=== PATIENT | female | born 1940 | race Caucasian/White ===

== ENCOUNTER 2017-03-03 04:51 | Inpatient (IN) | payer MEDICARE ==
[2017-03-03] VITALS (15 sets, daily range): BP systolic 129–167; BP diastolic 60–86; PULSE 76–108; RESP 18–36; TEMP 96.8–99.3; O2SAT 94–100
[~2017-03-03] VITALS: Ht 154.9 cm; Wt 95.0 kg
[2017-03-03] MEDS ORDERED: SODIUM CHLORIDE 0.9% FLUSH 10 ML FLUSH IVF PRN (05:00)
[2017-03-03] MEDS ORDERED: FUROSEMIDE 40 MG/4 ML VIAL IV PUSH ONE (05:00)
--- NOTE | 2017-03-03 05:06 | PD ---
HPI Chief Complaint: Respiratory Symptoms Time Seen by Provider: 04:54 Travel History International Travel<30 days: No Contact w/Intl Traveler<30days: No Traveled to known affect area: No History of Present Illness HPI 76-year-old female presents to the emergency department by EMS transport for complaint of sudden worsening shortness of breath. Patient has history of severe COPD CHF and end-stage renal disease. Patient is on supplemental oxygen at all 3 L/m nasal cannula. Patient states since yesterday she has had progressively worsening shortness of breath. Patient states yesterday while trying to move her oxygen tank she felt pain in her mid back and is concerned she has sustained an injury or fracture. Patient's had no fall. Patient states that she is in the process of signing paperwork to place herself on hospice for end-stage COPD CHF and kidney failure. Patient is not a dialysis patient. Patient states she has chronic lower extremity edema. Patient does not report any fever or chills. Patient does not report any chest pain at this time. Patient was transported by EMS and identified at her residence to have O2 saturation of 88% on supplemental nasal cannula oxygen was subsequently placed on 15 L nonrebreather mask as patient refused CPAP en route to the hospital. Patient did receive albuterol nebulized treatments in route. PFSH Past Medical History Narrative Medical COPD CHF CAD/angina dvt chronic kidney disease; tobacco use; nursing notes reviewed Social History Tobacco Use: Yes Allergies-Medications (Allergen,Severity, Reaction): Coded Allergies: Iodinated Contrast- Oral and IV Dye (Verified Allergy, Severe, 03/03/17) Mqlwody-Oll-Gxr Reductase Inhibitor (Verified Allergy, Severe, 03/03/17) Reported Meds & Prescriptions Reported Meds & Active Scripts Active Reported Bisacodyl EC (Bisacodyl) 5 Mg Tabec 5 Mg PO DAILY PRN Jeannette-D 24 Hour Allergy (Fexofenadine-Pseudoephedrine ER 24 HR) 180-240 Flavio 1 Tab PO DAILY Lisinopril 20 Mg Tab 20 Mg PO DAILY Furosemide 40 Mg Tab 40 Mg PO DAILY Isosorbide Dinitrate 10 Mg Tab 30 Mg PO ONCE Nitrostat SL (Nitroglycerin) 0.4 Mg Subl 0.4 Mg SL DIRECTED PRN 1 tablet under the tongue as needed for chest pain. Repeat every 5 minutes for a total of 3 DOSES or call 911 if NO relief. Duoneb (Ipratropium-Albuterol Neb) 0.5-2.5 Mg/3 Ml Neb 1 Nebule INH Q4HR NEB Tramadol (Tramadol HCl) 50 Mg Tab 50 Mg PO Q4H PRN Warfarin 3 Mg Tab 3 Mg PO DAILY Albuterol Neb (Albuterol Sulfate) 2.5 Mg/3 Ml Neb 2.5 Mg NEB Q4HR NEB PRN Ventolin Hfa 18 GM Inh (Albuterol Sulfate) 90 Mcg/Act Aer 2 Puff INH Q4-6H PRN Prednisone 10 Mg Tab 10 Mg PO BID Narrative Medication 3 L/m nasal cannula oxygen Review of Systems Except as stated in HPI: all other systems reviewed are Neg Physical Exam Narrative GENERAL: Well-developed obese elderly female with nonrebreather mask in place with moderate respiratory distress. SKIN: Warm and dry. HEAD: Normocephalic. EYES: No scleral icterus. No injection or drainage. NECK: Supple, trachea midline. No JVD or lymphadenopathy. CARDIOVASCULAR: Increased Regular rate and rhythm without murmurs, gallops, or rubs. RESPIRATORY: Breath sounds equal bilaterally. Diminished bilaterally with basilar crackles. No accessory muscle use. GASTROINTESTINAL: Abdomen soft, non-tender, nondistended. MUSCULOSKELETAL: No cyanosis, bilateral lower leg and pedal edema. BACK: Nontender without obvious deformity. No CVA tenderness. Data Data Last Documented VS Vital Signs Date Time Temp Pulse Resp B/P (MAP) Pulse Ox O2 Delivery O2 Flow Rate FiO2 03/03/17 05:32 100 30 153/77 (102) 97 Nasal Cannula 30.00 30 03/03/17 04:55 98.2 Orders Orders Complete Blood Count With Diff (03/03/17 04:59) Comprehensive Metabolic Panel (03/03/17 04:59) B-Type Natriuretic Peptide (03/03/17 04:59) Act Partial Throm Time (Ptt) (03/03/17 04:59) Prothrombin Time / Inr (Pt) (03/03/17 04:59) Magnesium (Mg) (03/03/17 04:59) Ckmb (Isoenzyme) Profile (03/03/17 04:59) Troponin I (03/03/17 04:59) Urinalysis - C+S If Indicated (03/03/17 04:59) Blood Culture (03/03/17 04:59) Iv Access Insert/Monitor (03/03/17 04:59) Electrocardiogram (03/03/17 04:59) Ecg Monitoring (03/03/17 04:59) Oximetry (03/03/17 04:59) Oxygen Administration (03/03/17 04:59) Chest, Single Ap (03/03/17 04:59) Sodium Chloride 0.9% Flush (Ns Flush) (03/03/17 05:00) Albuterol-Ipratropium Neb (Duoneb Neb) (03/03/17 05:00) Lactic Acid (03/03/17 04:59) Furosemide Inj (Lasix Inj) (03/03/17 05:00) Resp High Flow Nasal Cannula (03/03/17 ) Arterial Blood Gas (Abg) (03/03/17 ) Urinary Catheter Insert/Apply (03/03/17 05:07) CKMB (03/03/17 05:15) CKMB% (03/03/17 05:15) Tramadol (Ultram) (03/03/17 06:15) D-Dimer (03/03/17 06:25) Admit Order (Ed Use Only) (03/03/17 ) Jde Developer / Telemetry CASANDRA.Q8H (03/03/17 06:49) Diet Heart Healthy (03/03/17 Breakfast) Activity Oob With Assistance (03/03/17 06:49) Notify Dr: Other (03/03/17 06:49) Labs Laboratory Tests Test 03/03/17 05:15 03/03/17 05:55 03/03/17 06:00 White Blood Count 9.2 TH/MM3 Red Blood Count 4.22 MIL/MM3 Hemoglobin 12.3 GM/DL Hematocrit 37.4 % Mean Corpuscular Volume 88.5 FL Mean Corpuscular Hemoglobin 29.2 PG Mean Corpuscular Hemoglobin Concent 33.0 % Red Cell Distribution Width 18.2 % Platelet Count 367 TH/MM3 Mean Platelet Volume 8.1 FL Neutrophils (%) (Auto) 77.6 % Lymphocytes (%) (Auto) 14.8 % Monocytes (%) (Auto) 6.9 % Eosinophils (%) (Auto) 0.4 % Basophils (%) (Auto) 0.3 % Neutrophils # (Auto) 7.2 TH/MM3 Lymphocytes # (Auto) 1.4 TH/MM3 Monocytes # (Auto) 0.6 TH/MM3 Eosinophils # (Auto) 0.0 TH/MM3 Basophils # (Auto) 0.0 TH/MM3 CBC Comment DIFF FINAL Differential Comment Prothrombin Time 9.8 SEC Prothromb Time International Ratio 1.0 RATIO Activated Partial Thromboplast Time 26.4 SEC D-Dimer Quantitative (PE/DVT) 1.91 MG/L FEU Urine Color YELLOW Urine Turbidity HAZY Urine pH 8.0 Urine Specific [place] 1.009 Urine Protein NEG mg/dL Urine Glucose (UA) NEG mg/dL Urine Ketones NEG mg/dL Urine Occult Blood NEG Urine Nitrite NEG Urine Bilirubin NEG Urine Urobilinogen 2.0 MG/DL Urine Leukocyte Esterase NEG Urine RBC 5 /hpf Urine WBC 1 /hpf Urine Amorphous Sediment OCC Urine Bacteria RARE /hpf Urine Mucus FEW /lpf Microscopic Urinalysis Comment CULT NOT INDICATED Blood Urea Nitrogen 9 MG/DL Creatinine 0.84 MG/DL Random Glucose 124 MG/DL Total Protein 6.9 GM/DL Albumin 3.3 GM/DL Calcium Level 8.6 MG/DL Magnesium Level 1.8 MG/DL Alkaline Phosphatase 88 U/L Aspartate Amino Transf (AST/SGOT) 22 U/L Alanine Aminotransferase (ALT/SGPT) 25 U/L Total Bilirubin 0.7 MG/DL Sodium Level 140 MEQ/L Potassium Level 4.2 MEQ/L Chloride Level 103 MEQ/L Carbon Dioxide Level 31.3 MEQ/L Anion Gap 6 MEQ/L Estimat Glomerular Filtration Rate 66 ML/MIN Total Creatine Kinase 105 U/L Creatine Kinase MB 3.3 NG/ML Troponin I 0.03 NG/ML B-Type Natriuretic Peptide 216 PG/ML Lactic Acid Level 1.0 mmol/L Blood Gas Puncture Site LT RADIAL Blood Gas Patient Temperature 98.6 Blood Gas HCO3 32 mmol/L Blood Gas Base Excess 6.9 mmol/L Blood Gas Oxygen Saturation 92 % Arterial Blood pH 7.41 Arterial Blood Partial Pressure CO2 51 mmHg Arterial Blood Partial Pressure O2 66 mmHG Arterial Blood Oxygen Content 15.7 Vol % Arterial Blood Carboxyhemoglobin 1.4 % Arterial Blood Methemoglobin 0.6 % Blood Gas Hemoglobin 12.2 G/DL Oxygen Delivery Device HIGH FLOW Blood Gas Liter Flow 30 L/M Blood Gas Inspired Oxygen 31 % MDM Medical Decision Making Medical Screen Exam Complete: Yes Emergency Medical Condition: Yes Medical Record Reviewed: Yes Interpretation(s) EKG sinus tachycardia rate [address] elevation injury pattern or ectopy noted Last Impressions Chest X-Ray 03/03/17 0459 Signed Impressions: Service Date/Time: Friday, March 03, 2017 05:10 - CONCLUSION: Large cardiac silhouette and possible retrocardiac left lung base atelectasis versus consolidation. Dave Juarez MD CBC & BMP Diagram 03/03/17 05:15 Total Protein 6.9, Albumin 3.3 L, Calcium Level 8.6, Magnesium Level 1.8, Alkaline Phosphatase 88, Aspartate Amino Transf (AST/SGOT) 22, Alanine Aminotransferase (ALT/SGPT) 25, Total Bilirubin 0.7 Vital Signs Date Time Temp Pulse Resp B/P (MAP) Pulse Ox O2 Delivery O2 Flow Rate FiO2 03/03/17 05:32 100 30 153/77 (102) 97 Nasal Cannula 30.00 30 03/03/17 05:05 96 High Flow Nasal Cannula 30.00 30 03/03/17 05:03 36 100 Non-Rebreather 15.00 03/03/17 05:02 100 Non-Rebreather 15.00 03/03/17 05:00 100 Non-Rebreather 03/03/17 04:55 98.2 108 36 167/85 (112) 100 Non-Rebreather 15.00 Differential Diagnosis Exacerbation COPD, CHF, PE, ACS, IA, pneumonia Narrative Course 76-year-old female with significant COPD CHF angina and chronic kidney disease history and presents with progressively worsening shortness of breath on supplemental oxygen at home and improved O2 saturations on nonrebreather mask refusing BiPAP or CPAP. EKG performed shows sinus tachycardia without acute injury pattern. Patient on security sme with continuous pulse oximetry. Discussed with patient BiPAP or high flow nasal cannula options as patient refuses intubation has a DO NOT RESUSCITATE that identifies she does not want to be intubated. Discussed with patient in detail inability to be sustained on nonrebreather mask without differential deterioration and and she is refusing BiPAP and intubation. Patient is considering allowing BiPAP utilization and an intradermal use high flow nasal cannula. At 6:27 AM ABG shows mild hypercarbia on 31% FiO2 daily as per minute high flow NC pH 7.41 PCO2 51 PO2 66 O2 saturation 92% bicarbonate 32 base excess 6.9 Patient clinically improved family at bedside CBC is automated differential values normal range complete metabolic panel values grossly within normal limits troponin I 0.03, not elevated BNP is mildly elevated at 216 D-dimer is pending and INR subtherapeutic; discussed with [facility] for admission and aware will add imaging study if elevated d-dimer Discussed with [facility] MD --OBS Physician Communication Physician Communication discussed with [facility] service MD Diagnosis Primary Impression: Dyspnea Qualified Codes: R06.03 - Acute respiratory distress Additional Impressions: COPD exacerbation CHF with unknown LVEF Chronic low back pain Admitting Information Admitting Physician Requests: Observation Awilda Peralta MD Mar 03, 2017 05:06
[2017-03-03] MEDS: RESP: ALBUTEROL 2.5 MG/IPRATROPIUM 0.5 MG NEB (SCH) INH ×2 (05:20→05:21)
--- NOTE | 2017-03-03 05:28 | RADRPT ---
EXAM DATE/TIME: 03/03/2017 05:10 [facility] COMPARISON: No previous studies available for comparison. INDICATIONS : Shortness of breath MEDICAL HISTORY : Unknown SURGICAL HISTORY : Unknown ENCOUNTER: Initial ACUITY: 1 day PAIN SCORE: 8/10 LOCATION: Bilateral chest FINDINGS: Single AP view of the chest. Mild cardiac silhouette enlargement. Left lung base opacity indicating p ossible atelectasis or consolidation. Eventration of right hemidiaphragm. No evidence of pleural effu funmilayo or pneumothorax. CONCLUSION: Large cardiac silhouette and possible retrocardiac left lung base atelectasis versus consolidation. Dave Juarez MD on March 03, 2017 at 5:25 Board Certified Radiologist. This report was verified electronically.
[2017-03-03 05:30] LABS: AUTOMATED NEUTROPHIL # 7.2 TH/MM3 (1.8-7.7); BASOPHIL % 0.3 % (0.0-2.0); EOSINOPHIL % 0.4 % (0.0-4.0); HEMATOCRIT 37.4 % (35.0-46.0); HEMOGLOBIN 12.3 GM/DL (11.6-15.3); LYMPH % 14.8 % (9.0-44.0); LYMPHOCYTE # 1.4 TH/MM3 (1.0-4.8); MEAN CELL VOLUME 88.5 FL (80.0-100.0); MEAN CORPUSCULAR HEMOGLOBIN 29.2 PG (27.0-34.0); MEAN PLATELET VOLUME 8.1 FL (7.0-11.0); MONO % 6.9 % (0.0-8.0); MONOCYTE # 0.6 TH/MM3 (0-0.9); NEUT % 77.6 % (16.0-70.0); PLATELET COUNT 367 TH/MM3 (150-450); RED BLOOD COUNT 4.22 MIL/MM3 (4.00-5.30); RED CELL DISTRIBUTION WIDTH 18.2 % (11.6-17.2); WHITE BLOOD COUNT 9.2 TH/MM3 (4.0-11.0)
[2017-03-03 05:35] LABS: AMORPHOUS SEDIMENT, URINE OCC; BACTERIA, URINE RARE /hpf; BILIRUBIN, URINE NEG (NEG); BLOOD, URINE NEG (NEG); GLUCOSE,URINE NEG (NEG); KETONE, URINE NEG (NEG); MUCUS URINE FEW /lpf (OCC); NITRITE,URINE NEG (NEG); URINE COLOR YELLOW (YELLW/STRAW); URINE LEUKOCYTE ESTERASE NEG (NEG)
[2017-03-03 05:42] LABS: PROTHROMBIN TIME - PATIENT 9.8 SEC (9.8-11.6)
[2017-03-03 05:51] LABS: ALBUMIN 3.3 GM/DL (3.4-5.0); ALT (GPT) 25 U/L (10-53); AST (GOT) 22 U/L (15-37); BICARBONATE 31.3 MEQ/L (21.0-32.0); BLOOD UREA NITROGEN 9 MG/DL (7-18); CALCIUM 8.6 MG/DL (8.5-10.1); CHLORIDE 103 MEQ/L (98-107); CREATININE 0.84 MG/DL (0.50-1.00); GLOMERULAR FILTRATION RATE 66 ML/MIN (>89); GLUCOSE,RANDOM 124 MG/DL (74-106); MAGNESIUM 1.8 MG/DL (1.5-2.5); SODIUM (NA) 140 MEQ/L (136-145)
[2017-03-03 05:55] LABS: ALKALINE PHOSPHATASE 88 U/L (45-117); TOTAL BILIRUBIN ADULT 0.7 MG/DL (0.2-1.0); TOTAL PROTEIN 6.9 GM/DL (6.4-8.2); TROPONIN I 0.03 NG/ML (0.02-0.05)
[2017-03-03] MEDS ORDERED: traMADol HCL 50 MG TAB PO ONE (06:15)
[2017-03-03] MEDS ORDERED: WARF-58 PO (06:31)
[2017-03-03] MEDS ORDERED: LISI-515 PO (06:31)
[2017-03-03] MEDS ORDERED: FLEE5TAB PO (06:31)
[2017-03-03] MEDS ORDERED: ISOS10TA PO (06:31)
[2017-03-03] MEDS ORDERED: IPRASOL INH (06:31)
[2017-03-03] MEDS ORDERED: PRED10 PO (06:31)
[2017-03-03] MEDS ORDERED: TRAM50TA PO (06:31)
[2017-03-03] MEDS ORDERED: FURO40TA PO (06:31)
[2017-03-03] MEDS ORDERED: ALBU0.08 NEB (06:31)
[2017-03-03] MEDS ORDERED: VENTAER INH (06:31)
[2017-03-03] MEDS ORDERED: FEXO1TAB97 PO (06:31)
[2017-03-03] MEDS ORDERED: NITR0.4S SL (06:31)
[2017-03-03] MEDS ORDERED: RESP: ALBUTEROL 2.5 MG/IPRATROPIUM 0.5 MG NEB (PRN) NEB (07:00)
[2017-03-03] MEDS ORDERED: ACETAMINOPHEN 325 MG TAB PO PRN (07:00)
[2017-03-03] MEDS ORDERED: SODIUM CHLORIDE 0.9% FLUSH 10 ML FLUSH IV FLUSH PRN (07:00)
[2017-03-03] MEDS ORDERED: ONDANSETRON HCL 4 MG/2 ML VIAL IVP PRN (07:00)
[2017-03-03] MEDS ORDERED: BISACODYL 10 MG SUPP RECTAL PRN (07:00)
[2017-03-03] MEDS ORDERED: SENNOSIDES 8.6 MG TAB PO PRN (07:00)
[2017-03-03] MEDS ORDERED: LACTULOSE SYRUP 20 GM/30 ML CUP PO PRN (07:00)
[2017-03-03] MEDS ORDERED: ACETAMINOPHEN/HYDROcodone 325 MG/5 MG TAB PO PRN (07:00)
[2017-03-03] MEDS ORDERED: MAGNESIUM HYDROXIDE SUSP 30 ML CUP PO PRN (07:00)
[2017-03-03] MEDS: RESP: ALBUTEROL 2.5 MG/IPRATROPIUM 0.5 MG NEB (SCH) NEB ×5 (07:35→23:17)
[2017-03-03] MEDS ORDERED: SODIUM CHLORIDE 0.9% FLUSH 10 ML FLUSH IV FLUSH SCH (09:00)
[2017-03-03] MEDS: DOCUSATE SODIUM 50 MG/SENNA 8.6 MG TAB PO SCH ×2 (09:34→21:21)
[2017-03-03] MEDS: FUROSEMIDE 40 MG/4 ML VIAL IV PUSH SCH ×2 (09:34→17:05)
[2017-03-03] MEDS: ACETAMINOPHEN/HYDROcodone 325 MG/10 MG TAB PO PRN ×3 (09:35→21:21)
--- NOTE | 2017-03-03 10:46 | RADRPT ---
EXAM DATE/TIME: 03/03/2017 09:54 [facility] COMPARISON: CHEST SINGLE AP, March 03, 2017, 5:10. INDICATIONS : Dyspnea. DOSE: 8.6 mCi Tc99m MAA IV 0.5 mCi Tc99m DTPA aerosol MEDICAL HISTORY : Chronic obstructive pulmonary disease. Congestive heart failure. Hypertension. SURGICAL HISTORY : Tubal ligation. Tonsillectomy. ENCOUNTER: Initial ACUITY: 1 day PAIN SCALE: 0/10 LOCATION: chest TECHNIQUE: Following five minutes of tidal breathing of DTPA aerosol, planar images of the lungs were performed in eight projections. The patient was then injected with MAA, and eight-view perfusion scan was perf ormed. FINDINGS: The ventilation and perfusion scans demonstrate large matched defects involving the left perihilar re gion. This scan is considered intermediate probability for pulmonary embolism. CT pulmonary angiogram would be more sensitive to rule out pulmonary emboli in this patient if clinically indicated. CONCLUSION: Intermediate probability for pulmonary embolism. CT pulmonary angiogram would be more sensitive to ru le out pulmonary emboli in this patient if clinically indicated. Andrew Aviles MD on March 03, 2017 at 10:40 Board Certified Radiologist. This report was verified electronically.
[2017-03-03] MEDS ORDERED: ISOSORBIDE DINITRATE 10 MG TAB PO ONE (11:15)
[2017-03-03] MEDS ORDERED: BISACODYL EC 5 MG TABEC PO PRN (11:15)
--- NOTE | 2017-03-03 11:47 | HHI.HP ---
HPI Service [facility] Primary Care Physician Unknown Admission Diagnosis dyspnea; exac copd, h/o chf Diagnoses: Chief Complaint: RESPIRATORY SYMPTOMS Travel History International Travel<30 Days: No Contact w/Intl Traveler <30 Da: No Traveled to Known Affected Are: No History of Present Illness Patient is a 76-year-old female, Who is visiting us from [place], who presented to the emergency department by EMS for complaint of sudden worsening shortness of breath. Patient has a history of severe COPD and congestive heart failure and end-stage COPD. Patient is on chronic supplemental oxygen at home ON 3 L by nasal cannula continuously. Patient states since yesterday she has had progressively worsening shortness of breath. Patient states yesterday while trying to move her oxygen Tank she felt pain in her mid back and is concerned she sustained injury or fracture. Patient denies any fall, patient states that she is in the process of signing paperwork to place herself in hospice for end-stage COPD and CHF and possible renal issues. Patient is not on dialysis. Patient states she has chronic lower extremity edema. Patient denies any report of fever or chills that does not report any chest pain at this time was transported here by EMS noted to have oxygen saturation of only 88 % on oxygen. And then had been on 15 L nonrebreather mask had refused CPAP en route to the hospital and was given nebulized treatments prior to coming to the hospital Patient HAS made herself a complete DO NOT RESUSCITATE does not wish to be intubated or placed on any machines. Wants everything done except for that but no CPR or machines or aggressive treatment but still wants to be treated We'll ask hospice to see her here since she was contemplating hospice up in [place] We'll get x-rays of her back also Review of Systems Constitutional: COMPLAINS OF: Fatigue, Weight gain, DENIES: Diaphoretic episodes, Fever, Weight loss, Chills, Dizziness, Change in appetite, Night Sweats Endocrine: DENIES: Abnorml menstrual pattern, Heat/cold intolerance, Polydipsia , Polyuria Eyes: DENIES: Blurred vision, Diplopia, Eye inflammation, Eye pain, Vision loss , Photosensitivity Ears, nose, mouth, throat: DENIES: Tinnitus, Hearing loss, Vertigo, Nasal discharge, Oral lesions, Throat pain, Hoarseness Respiratory: COMPLAINS OF: Cough, Wheezing, Sputum production, Shortness of breath, DENIES: Apneas, Snoring, Hemoptysis Cardiovascular: DENIES: Chest pain, Palpitations, Syncope, Dyspnea on Exertion Gastrointestinal: DENIES: Abdominal pain, Black stools, Bloody stools Genitourinary: DENIES: Abnormal vaginal bleeding, Dysmenorrhea, Sexual dysfunction Musculoskeletal: COMPLAINS OF: Joint pain, Back pain, Neck pain, DENIES: Muscle aches, Stiffness, Joint Swelling Integumentary: DENIES: Abnormal pigmentation, Pruritus, Rash, Nail changes, Breast masses, Breast skin changes Hematologic/lymphatic: DENIES: Bruising, Lymphadenopathy Immunologic/allergic: DENIES: Eczema, Urticaria Neurologic: COMPLAINS OF: Abnormal gait, Localized weakness, Poor Balance, DENIES: Headache, Paresthesias, Seizures, Speech Problems, Tremor Psychiatric: COMPLAINS OF: Anxiety, Depression, DENIES: Confusion, Mood changes , Hallucinations, Suicidal Ideation, Homicidal Ideation Except as stated in HPI: all other systems reviewed are Neg Past Family Social History Past Medical History COPD CHF End-stage COPD Renal insufficiency Hyperlipidemia 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 History of coronary artery disease Hypertension Pneumonia Obesity Chronic lower extremity edema/lymphedema Past Surgical History Cataract surgery Tonsillectomy Stenting cardiac 3 Appendectomy Ligation section Multiple D&Cs Tumor removed from her throat was benign Reported Medications Reported Meds & Active Scripts Active Reported Bisacodyl EC (Bisacodyl) 5 Mg Tabec 5 Mg PO DAILY PRN Jeannette-D 24 Hour Allergy (Fexofenadine-Pseudoephedrine ER 24 HR) 180-240 Flavio 1 Tab PO DAILY Lisinopril 20 Mg Tab 20 Mg PO DAILY Furosemide 40 Mg Tab 40 Mg PO DAILY Isosorbide Dinitrate 10 Mg Tab 30 Mg PO ONCE Nitrostat SL (Nitroglycerin) 0.4 Mg Subl 0.4 Mg SL DIRECTED PRN 1 tablet under the tongue as needed for chest pain. Repeat every 5 minutes for a total of 3 DOSES or call 911 if NO relief. Duoneb (Ipratropium-Albuterol Neb) 0.5-2.5 Mg/3 Ml Neb 1 Nebule INH Q4HR NEB Tramadol (Tramadol HCl) 50 Mg Tab 50 Mg PO Q4H PRN Warfarin 3 Mg Tab 3 Mg PO DAILY Albuterol Neb (Albuterol Sulfate) 2.5 Mg/3 Ml Neb 2.5 Mg NEB Q4HR NEB PRN Ventolin Hfa 18 GM Inh (Albuterol Sulfate) 90 Mcg/Act Aer 2 Puff INH Q4-6H PRN Prednisone 10 Mg Tab 10 Mg PO BID Allergies: Coded Allergies: Iodinated Contrast- Oral and IV Dye (Verified Allergy, Severe, 03/03/17) Dkyzuuf-[id number] Reductase Inhibitor (Verified Allergy, Severe, 03/03/17) Active Ordered Medications Current Medications Sodium Chloride (NS Flush) 2 ml UNSCH PRN IVF FLUSH AFTER USING IV ACCESS; Start 03/03/17 at 05:00; Stop 03/03/17 at 07:06; Status DC Albuterol/ Ipratropium (Duoneb Neb) 1 ampule Q15M INH Last administered on at 05:21; Start 03/03/17 at 05:00; Stop 03/03/17 at 05:16; Status DC Furosemide (Lasix Inj) 40 mg ONCE ONCE IV PUSH Last administered on 03/03/17at 05:32; Start 03/03/17 at 05:00; Stop 03/03/17 at 05:02; Status DC Tramadol HCl (Ultram) 50 mg ONCE ONCE PO Last administered on 03/03/17at 06:21; Start 03/03/17 at 06:15; Stop 03/03/17 at 06:16; Status DC Methylprednisolone Sodium Succinate (SoluMEDROL INJ) 40 mg Q6HR IV PUSH ; Start 03/03/17 at 12:00 Albuterol/ Ipratropium (Duoneb Neb) 1 ampule Q4HR NEB NEB Last administered on 03/03/17at 07:35; Start 03/03/17 at 08:00 Albuterol/ Ipratropium (Duoneb Neb) 1 ampule Q2HR NEB PRN NEB SOB/WHEEZING; Start 03/03/17 at 07:00 Budesonide/ Formoterol Fumarate (Symbicort 160-4.5 Mcg Inh) 2 puff Q12HR INH ; Start 03/03/17 at 09:00 Furosemide (Lasix Inj) 40 mg BID@,18 IV PUSH Last administered on 03/03/17at 09 :34; Start 03/03/17 at 09:00 Sodium Chloride (NS Flush) 2 ml UNSCH PRN IV FLUSH FLUSH AFTER USING IV ACCESS ; Start 03/03/17 at 07:00 Sodium Chloride (NS Flush) 2 ml BID IV FLUSH Last administered on 03/03/17at 09: 34; Start 03/03/17 at 09:00 Ondansetron HCl (Zofran Inj) 4 mg Q6H PRN IVP NAUSEA OR VOMITING; Start at 07:00 Acetaminophen (Tylenol) 650 mg Q6H PRN PO FEVER/PAIN SCALE 1 TO 2; Start at 07:00 Acetaminophen/ Hydrocodone Bitart ([place] 5-325 Mg) 1 tab Q4H PRN PO PAIN SCALE 3 TO 5; Start 03/03/17 at 07:00 Acetaminophen/ Hydrocodone Bitart ([place] 10-325 Mg) 1 tab Q4H PRN PO PAIN SCALE 6 TO 10 Last administered on 03/03/17at 09:35; Start 03/03/17 at 07:00 Senna/Docusate Sodium (Natividad-Colace) 1 tab BID PO Last administered on 03/03/17at 09:34; Start 03/03/17 at 09:00 Magnesium Hydroxide (Milk Of Magnesia Liq) 30 ml Q12H PRN PO Mild constipation ; Start 03/03/17 at 07:00 Sennosides (Senokot) 17.2 mg Q12H PRN PO Moderate constipation; Start 03/03/17 at 07:00 Bisacodyl (Dulcolax Supp) 10 mg DAILY PRN RECTAL SEVERE CONSITIPATION; Start at 07:00 Lactulose (Lactulose Liq) 30 ml DAILY PRN PO SEVERE CONSITIPATION; Start at 07:00 Warfarin Sodium (Coumadin) 3 mg DAILY@1600 PO ; Start 03/03/17 at 16:00 Patient Medication Teaching (Coumadin Booklet) 1 ONCE ONCE .XX ; Start 03/03/17 at 07:15; Stop 03/03/17 at 07:16; Status DC Family History Tobacco abuse Heart disease Hypertension Social History HX OF EXTENSIVE TOBACCO 2PPD FOR 30 YEARS DENIES TOBACCO NOW DENIES ILLICITS OR ALCOHOL Physical Exam Vital Signs Vital Signs Date Time Temp Pulse Resp B/P (MAP) Pulse Ox O2 Delivery O2 Flow Rate FiO2 03/03/17 09:33 94 Nasal Cannula 3.00 03/03/17 09:32 99.3 99 24 129/66 (87) 94 03/03/17 09:12 90 18 136/83 (100) 96 Nasal Cannula 3.00 03/03/17 07:37 97 Nasal Cannula 3.00 03/03/17 07:08 96 26 146/86 (106) 97 Nasal Cannula 3.00 03/03/17 05:32 100 30 153/77 (102) 97 Nasal Cannula 30.00 30 03/03/17 05:05 96 High Flow Nasal Cannula 30.00 30 03/03/17 05:03 36 100 Non-Rebreather 15.00 03/03/17 05:02 100 Non-Rebreather 15.00 03/03/17 05:00 100 Non-Rebreather 03/03/17 04:55 98.2 108 36 167/85 (112) 100 Non-Rebreather 15.00 Physical Exam GENERAL: This is a well-nourished, well-developed patient, in no apparent distress. SKIN: No rashes, ecchymoses or lesions. Cool and dry. HEAD: Atraumatic. Normocephalic. No temporal or scalp tenderness. EYES: Pupils equal round and reactive. Extraocular motions intact. No scleral icterus. No injection or drainage. ENT: Nose without bleeding, purulent drainage or septal hematoma. Throat without erythema, tonsillar hypertrophy or exudate. Uvula midline. Airway patent. NECK: Trachea midline. No JVD or lymphadenopathy. Supple, nontender, no meningeal signs. CARDIOVASCULAR: Regular rate and rhythm without murmurs, gallops, or rubs. S1, S2 NO S3 OR S4 RESPIRATORY: Clear to auscultation. Breath sounds equal bilaterally. No wheezes , rales, or rhonchi. GASTROINTESTINAL: Abdomen soft, non-tender, nondistended. No hepato-splenomegaly , or palpable masses. No guarding. MUSCULOSKELETAL: Extremities without clubbing, cyanosis. No joint tenderness, effusion, or edema noted. No calf tenderness. Negative Homans sign bilaterally. 2- 3 PLUS EDEMA BL LE NEUROLOGICAL: Awake and alert. Cranial nerves II through XII intact. Motor and sensory grossly within normal limits. 4 out of 5 muscle strength in all muscle groups. Normal speech. INSIGHT AND JUDGEMENT ARE GOOD MOOD AND BEHAVIOR SOMEWHAT APPROPRIATE Laboratory Laboratory Tests Test 03/03/17 05:15 03/03/17 05:55 03/03/17 06:00 White Blood Count 9.2 Red Blood Count 4.22 Hemoglobin 12.3 Hematocrit 37.4 Mean Corpuscular Volume 88.5 Mean Corpuscular Hemoglobin 29.2 Mean Corpuscular Hemoglobin Concent 33.0 Red Cell Distribution Width 18.2 Platelet Count 367 Mean Platelet Volume 8.1 Neutrophils (%) (Auto) 77.6 Lymphocytes (%) (Auto) 14.8 Monocytes (%) (Auto) 6.9 Eosinophils (%) (Auto) 0.4 Basophils (%) (Auto) 0.3 Neutrophils # (Auto) 7.2 Lymphocytes # (Auto) 1.4 Monocytes # (Auto) 0.6 Eosinophils # (Auto) 0.0 Basophils # (Auto) 0.0 CBC Comment DIFF FINAL Differential Comment Prothrombin Time 9.8 Prothromb Time International Ratio 1.0 Activated Partial Thromboplast Time 26.4 D-Dimer Quantitative (PE/DVT) 1.91 Urine Color YELLOW Urine Turbidity HAZY Urine pH 8.0 Urine Specific Sandy 1.009 Urine Protein NEG Urine Glucose (UA) NEG Urine Ketones NEG Urine Occult Blood NEG Urine Nitrite NEG Urine Bilirubin NEG Urine Urobilinogen 2.0 Urine Leukocyte Esterase NEG Urine RBC 5 Urine WBC 1 Urine Amorphous Sediment OCC Urine Bacteria RARE Urine Mucus FEW Microscopic Urinalysis Comment CULT NOT INDICATED Blood Urea Nitrogen 9 Creatinine 0.84 Random Glucose 124 Total Protein 6.9 Albumin 3.3 Calcium Level 8.6 Magnesium Level 1.8 Alkaline Phosphatase 88 Aspartate Amino Transf (AST/SGOT) 22 Alanine Aminotransferase (ALT/SGPT) 25 Total Bilirubin 0.7 Sodium Level 140 Potassium Level 4.2 Chloride Level 103 Carbon Dioxide Level 31.3 Anion Gap 6 Estimat Glomerular Filtration Rate 66 Total Creatine Kinase 105 Creatine Kinase MB 3.3 Troponin I 0.03 B-Type Natriuretic Peptide 216 Lactic Acid Level 1.0 Blood Gas Puncture Site LT RADIAL Blood Gas Patient Temperature 98.6 Blood Gas HCO3 32 Blood Gas Base Excess 6.9 Blood Gas Oxygen Saturation 92 Arterial Blood pH 7.41 Arterial Blood Partial Pressure CO2 51 Arterial Blood Partial Pressure O2 66 Arterial Blood Oxygen Content 15.7 Arterial Blood Carboxyhemoglobin 1.4 Arterial Blood Methemoglobin 0.6 Blood Gas Hemoglobin 12.2 Oxygen Delivery Device HIGH FLOW Blood Gas Liter Flow 30 Blood Gas Inspired Oxygen 31 Date/Time Source Procedure Growth Status 03/03/17 05:15 Blood Peripheral Aerobic Blood Culture Pending Received 03/03/17 05:15 Blood Peripheral Anaerobic Blood Culture Pending Received Result Diagram: 03/03/17 0515 03/03/17 0515 Imaging Last Impressions Chest X-Ray 03/03/17 0459 Signed Impressions: Service Date/Time: Friday, March 03, 2017 05:10 - CONCLUSION: Large cardiac silhouette and possible retrocardiac left lung base atelectasis versus consolidation. Dave Juarez MD Lung Scan-V Nuclear Medicine 03/03/17 0000 Signed Impressions: Service Date/Time: Friday, March 03, 2017 09:54 - CONCLUSION: Intermediate probability for pulmonary embolism. CT pulmonary angiogram would be more sensitive to rule out pulmonary emboli in this patient if clinically indicated. Andrew Aviles MD Caprini VTE Risk Assessment Caprini VTE Risk Assessment: Mod/High Risk (score >= 2) Caprini Risk Assessment Model Point Value = 1 Point Value = 2 Point Value = 3 Point Value = 5 Age 41-60 Minor surgery BMI > 25 kg/m2 Swollen legs Varicose veins or History of unexplained or recurrent spontaneous Oral contraceptives or hormone replacement Sepsis (< 1 month) Serious lung disease, including pneumonia (< 1 month) Abnormal pulmonary function Acute myocardial infarction Congestive heart failure (< 1 month) History of inflammatory bowel disease Medical patient at bed rest Age 61-74 Arthroscopic surgery Major open surgery (> 45 min) Laparoscopic surgery (> 45 min) Malignancy Confined to bed (> 72 hours) Immobilizing plaster cast Central venous access Age >= 75 History of VTE Family history of VTE Factor V Leiden Prothrombin [id number] Lupus anticoagulant Anticardiolipin antibodies Elevated serum homocysteine Heparin-induced thrombocytopenia Other congenital or acquired thrombophilia Stroke (< 1 month) Elective arthroplasty Hip, pelvis, or leg fracture Acute spinal cord injury (< 1 month) Prophylaxis Regimen Total Risk Factor Score Risk Level Prophylaxis Regimen 0-1 Low Early ambulation 2 Moderate Order ONE of the following: *Sequential Compression Device (SCD) *Heparin 5000 units SQ BID 3-4 Higher Order ONE of the following medications: *Heparin 5000 units SQ TID *Enoxaparin/Lovenox 40 mg SQ daily (WT < 150 kg, CrCl > 30 mL/min) *Enoxaparin/Lovenox 30 mg SQ daily (WT < 150 kg, CrCl > 10-29 mL/min) *Enoxaparin/Lovenox 30 mg SQ BID (WT < 150 kg, CrCl > 30 mL/min) AND/OR *Sequential Compression Device (SCD) 5 or more Highest Order ONE of the following medications: *Heparin 5000 units SQ TID (Preferred with Epidurals) *Enoxaparin/Lovenox 40 mg SQ daily (WT < 150 kg, CrCl > 30 mL/min) *Enoxaparin/Lovenox 30 mg SQ daily (WT < 150 kg, CrCl > 10-29 mL/min) *Enoxaparin/Lovenox 30 mg SQ BID (WT < 150 kg, CrCl > 30 mL/min) AND *Sequential Compression Device (SCD) Assessment and Plan Assessment and Plan Respiratory insufficiency/failure Endstage COPD per patient continue on dual nebs at Mucinex continue on Symbicort continue on incentive spirometry we'll had antibiotics with Zithromax and Rocephin for possible pneumonia component Continue on steroids We'll also consult hospice since patient has end-stage COPD and is to be in hospice [facility] Patient is a DO NOT RESUSCITATE refuses to be intubated did not tolerate BiPAP very well this morning Continue steroids Congestive heart failure continue on Lasix monitor BUN/creatinine Obesity weight loss recommended Status post fall with back pain will get multiple x-rays of her thoracic and lumbar spine Hypertension continue on her home medications Coronary artery disease continue on indoor and her home medications Continue on aspirin and warfarin Hyperlipidemia patient can states she cannot take his statin Iodine allergy Had VQ scan Continue current DVT and GI prophylaxis Code Status DO NOT RESUSCITATE Discussed Condition With Discussed with patient and RN and family Physician Certification 2 Midnight Certification Type: Admission for Inpatient Services Order for Inpatient Services The services are ordered in accordance with Medicare regulations or non- Medicare payer requirements, as applicable. In the case of services not specified as inpatient-only, they are appropriately provided as inpatient services in accordance with the 2-midnight benchmark. Estimated LOS (days): 3 days is the estimated time the patient will need to remain in the hospital, assuming treatment plan goals are met and no additional complications. Post-Hospital Plan: Not yet determined Emir Ng DO Mar 03, 2017 11:46
[2017-03-03] MEDS ORDERED: RESP: ALBUTEROL 2.5 MG/IPRATROPIUM 0.5 MG NEB (SCH) INH (12:00)
[2017-03-03] MEDS: guaiFENesin E.R. 600 MG TAB PO SCH ×2 (12:18→21:48)
[2017-03-03] MEDS: BUDESONIDE-FORMOTEROL 160/4.5 MCG INHALER INH SCH ×2 (12:18→21:49)
[2017-03-03] MEDS: methylPREDNISolone SOD SUCC 40 MG/1 ML VIAL IV PUSH SCH ×2 (12:19→17:05)
[2017-03-03] MEDS: cefTRIAXone INJ 1,000 MG in SODIUM CHLORIDE 0.9% INJ 100 ML IV SCH (12:19)
--- NOTE | 2017-03-03 12:21 | RADRPT ---
EXAM DATE/TIME: 03/03/2017 11:28 [facility] COMPARISON: No previous studies available for comparison. INDICATIONS : Lower back pain post fall. MEDICAL HISTORY : None. SURGICAL HISTORY : Abdominal aortic stent. ENCOUNTER: Initial ACUITY: 1 day PAIN SCORE: 7/10 LOCATION: lumbar spine. FINDINGS: No acute compression fracture, spondylolisthesis or spondylolysis of lumbar spine is noted. Aortic st ent graft is noted. CONCLUSION: No acute compression fracture, spondylolisthesis or spondylolysis of lumbar spine. Andrew Aviles MD on March 03, 2017 at 12:15 Board Certified Radiologist. This report was verified electronically.
--- NOTE | 2017-03-03 12:23 | RADRPT ---
EXAM DATE/TIME: 03/03/2017 11:29 [facility] COMPARISON: No previous studies available for comparison. INDICATIONS : Back pain post fall. MEDICAL HISTORY : None. SURGICAL HISTORY : Abdominal aortic stent. ENCOUNTER: Initial ACUITY: 1 day PAIN SCORE: 7/10 LOCATION: thoracic spine. FINDINGS: Degenerative changes and scoliosis of the thoracic spine are noted. There is no acute compression fra cture or subluxation. CONCLUSION: 1. Degenerative changes and scoliosis of the thoracic spine. 2. No acute fracture or subluxation. Andrew Aviles MD on March 03, 2017 at 12:20 Board Certified Radiologist. This report was verified electronically.
[2017-03-03] MEDS: AZITHROMYCIN INJ 500 MG in SODIUM CHLOR 0.9% 250 ML INJ 250 ML IV SCH (12:57)
--- NOTE | 2017-03-03 14:25 | EKG ---
Date Performed: 03/03/2017 Time Performed: 05:02:31 PTAGE: 76 years EKG: SINUS TACHYCARDIA ABNORMAL RHYTHM ECG NO PREVIOUS TRACING DOCTOR: Issa Bethea Interpretating Date/Time 03/03/2017 14:23:33
[2017-03-03] MEDS: WARFARIN SOD 3 MG TAB PO SCH (17:05)
[2017-03-03] MEDS ORDERED: predniSONE 10 MG TAB PO SCH (21:00)
[2017-03-03] MEDS: SODIUM CHLORIDE 0.9% FLUSH 10 ML FLUSH IV FLUSH SCH (21:21)
[2017-03-04] VITALS (11 sets, daily range): BP systolic 99–152; BP diastolic 49–80; PULSE 78–115; RESP 18–22; TEMP 97.8–98.2; O2SAT 93–95
[2017-03-04] MEDS: methylPREDNISolone SOD SUCC 40 MG/1 ML VIAL IV PUSH SCH ×5 (01:20→23:59)
[2017-03-04] MEDS: RESP: ALBUTEROL 2.5 MG/IPRATROPIUM 0.5 MG NEB (SCH) NEB ×5 (03:20→22:57)
[2017-03-04 06:54] LABS: BASOPHIL % 0.1 % (0.0-2.0); HEMATOCRIT 33.9 % (35.0-46.0); HEMOGLOBIN 11.4 GM/DL (11.6-15.3); LYMPH % 7.4 % (9.0-44.0); LYMPHOCYTE # 0.6 TH/MM3 (1.0-4.8); MEAN CELL VOLUME 87.5 FL (80.0-100.0); MEAN CORPUSCULAR HEMOGLOBIN 29.3 PG (27.0-34.0); MEAN CORPUSCULAR HGB CONC 33.5 % (32.0-36.0); MEAN PLATELET VOLUME 8.2 FL (7.0-11.0); MONO % 1.5 % (0.0-8.0); MONOCYTE # 0.1 TH/MM3 (0-0.9); PLATELET COUNT 352 TH/MM3 (150-450); RED BLOOD COUNT 3.87 MIL/MM3 (4.00-5.30); RED CELL DISTRIBUTION WIDTH 16.8 % (11.6-17.2); WHITE BLOOD COUNT 7.7 TH/MM3 (4.0-11.0)
[2017-03-04 07:46] LABS: ALBUMIN 3.1 GM/DL (3.4-5.0); ALKALINE PHOSPHATASE 83 U/L (45-117); ALT (GPT) 20 U/L (10-53); AST (GOT) 15 U/L (15-37); BICARBONATE 33.5 MEQ/L (21.0-32.0); BLOOD UREA NITROGEN 16 MG/DL (7-18); CALCIUM 8.8 MG/DL (8.5-10.1); CHLORIDE 93 MEQ/L (98-107); CREATININE 1.01 MG/DL (0.50-1.00); FREE T4 1.04 NG/DL (0.76-1.46); GLOMERULAR FILTRATION RATE 53 ML/MIN (>89); GLUCOSE,RANDOM 161 MG/DL (74-106); PHOSPHORUS 3.6 MG/DL (2.5-4.9); SODIUM (NA) 134 MEQ/L (136-145); TOTAL BILIRUBIN ADULT 0.5 MG/DL (0.2-1.0)
[2017-03-04] MEDS: BUDESONIDE-FORMOTEROL 160/4.5 MCG INHALER INH SCH ×2 (08:56→23:59)
[2017-03-04] MEDS: SODIUM CHLORIDE 0.9% FLUSH 10 ML FLUSH IV FLUSH SCH ×2 (08:57→22:20)
[2017-03-04] MEDS: FUROSEMIDE 40 MG/4 ML VIAL IV PUSH SCH ×2 (08:58→17:02)
[2017-03-04] MEDS: DOCUSATE SODIUM 50 MG/SENNA 8.6 MG TAB PO SCH ×2 (08:58→22:20)
[2017-03-04] MEDS: LISINOPRIL 20 MG TAB PO SCH (08:58)
[2017-03-04] MEDS: ACETAMINOPHEN/HYDROcodone 325 MG/10 MG TAB PO PRN (08:59)
[2017-03-04] MEDS ORDERED: [UNRECOGNIZED DRUG - REMARK] PO SCH (09:00)
[2017-03-04] MEDS ORDERED: FUROSEMIDE 40 MG TAB PO SCH (09:00)
[2017-03-04 09:42] LABS: HEMOGLOBIN A1C 5.6 % (4.3-6.0)
[2017-03-04] MEDS: guaiFENesin E.R. 600 MG TAB PO SCH ×2 (09:43→22:20)
[2017-03-04] MEDS ORDERED: MORPHINE SULFATE 2 MG/ML INJ IV PUSH PRN (09:45)
--- NOTE | 2017-03-04 09:49 | HHI.PR ---
Subjective Remarks anxious and complaining of worsening sob. has occasional cough. currently on oxygen ; 3 liters/m- via N/C. so at the bedside. d/w the RN. Objective Vitals Vital Signs Date Time Temp Pulse Resp B/P (MAP) Pulse Ox O2 Delivery O2 Flow Rate FiO2 03/04/17 05:51 97.8 95 22 139/80 (99) 95 03/04/17 00:00 97.9 104 22 143/72 (95) 93 03/03/17 23:41 Nasal Cannula 2.00 03/03/17 22:01 18 03/03/17 20:31 97.9 78 18 133/83 (100) 98 03/03/17 19:20 96 Nasal Cannula 3.00 03/03/17 18:48 98.0 03/03/17 16:03 96.8 76 20 140/60 (86) 96 03/03/17 12:28 97.9 78 20 136/75 (95) 96 03/03/17 12:22 103 I/O 03/03/17 03/03/17 03/03/17 03/04/17 03/04/17 03/04/17 07:00 15:00 23:00 07:00 15:00 23:00 Intake Total 350 ml 200 ml Output Total 2200 ml 400 ml 550 ml Balance -1850 ml -400 ml -350 ml Intake Oral 200 ml IV Total 350 ml Output Urine Total 2200 ml 400 ml 550 ml # Voids 0 Result Diagram: 03/04/17 0542 03/04/17 0542 Imaging Last Impressions Chest X-Ray 03/03/17 0459 Signed Impressions: Service Date/Time: Friday, March 03, 2017 05:10 - CONCLUSION: Large cardiac silhouette and possible retrocardiac left lung base atelectasis versus consolidation. Dave Juarez MD Thoracic Spine X-Ray 03/03/17 0000 Signed Impressions: Service Date/Time: Friday, March 03, 2017 11:29 - CONCLUSION: 1. Degenerative changes and scoliosis of the thoracic spine. 2. No acute fracture or subluxation. Andrew Aviles MD Lung Scan- Nuclear Medicine 03/03/17 0000 Signed Impressions: Service Date/Time: Friday, March 03, 2017 09:54 - CONCLUSION: Intermediate probability for pulmonary embolism. CT pulmonary angiogram would be more sensitive to rule out pulmonary emboli in this patient if clinically indicated. Andrew Aviles MD Lumbar Spine X-Ray 03/03/17 0000 Signed Impressions: Service Date/Time: Friday, March 03, 2017 11:28 - CONCLUSION: No acute compression fracture, spondylolisthesis or spondylolysis of lumbar spine. Andrew Aviles MD Objective Remarks GENERAL: anxious with sob CARDIOVASCULAR: Regular rate and regular rhythm without murmurs, gallops, or rubs. RESPIRATORY: diminished air entry bilaterally with mild wheezing. GASTROINTESTINAL: Abdomen soft, non-tender, nondistended. Normal, active bowel sounds MUSCULOSKELETAL: Extremities without clubbing, cyanosis, or edema. NEURO: Alert & Oriented x4 to person, place, time, situation. Moves all ext x4 Medications and IVs Inpatient Medications Acetaminophen (Tylenol) 650 mg Q6H PRN PO FEVER/PAIN SCALE 1 TO 2; Start at 07:00 Acetaminophen/ Hydrocodone Bitart ([place] 5-325 Mg) 1 tab Q4H PRN PO PAIN SCALE 3 TO 5; Start 03/03/17 at 07:00 Acetaminophen/ Hydrocodone Bitart ([place] 10-325 Mg) 1 tab Q4H PRN PO PAIN SCALE 6 TO 10 Last administered on 03/04/17at 08:59; Start 03/03/17 at 07:00 Albuterol/ Ipratropium (Duoneb Neb) 1 ampule Q4HR NEB INH ; Start 03/03/17 at 12 :00; Stop 03/03/17 at 12:00; Status DC Azithromycin 500 mg/Sodium Chloride 250 ml @ 250 mls/hr Q24H IV Last administered on 03/03/17at 12:57; Start 03/03/17 at 12:00 Bisacodyl (Dulcolax Ec) 5 mg DAILY PRN PO CONSTIPATION; Start 03/03/17 at 11:15 ; Stop 03/03/17 at 11:17; Status DC Bisacodyl (Dulcolax Supp) 10 mg DAILY PRN RECTAL SEVERE CONSITIPATION; Start at 07:00 Budesonide/ Formoterol Fumarate (Symbicort 160-4.5 Mcg Inh) 2 puff Q12HR INH Last administered on 03/04/17at 08:56; Start 03/03/17 at 09:00 Ceftriaxone Sodium 1000 mg/ Sodium Chloride 100 ml @ 200 mls/hr Q24H IV Last administered on 03/03/17at 12:19; Start 03/03/17 at 12:00 Furosemide (Lasix Inj) 40 mg BID@09,18 IV PUSH Last administered on 03/04/17at 08 :58; Start 03/03/17 at 09:00 Furosemide (Lasix) 40 mg DAILY PO ; Start 03/04/17 at 09:00; Stop 03/04/17 at 09: 00; Status DC Guaifenesin (Mucinex Er) 600 mg BID PO Last administered on 03/03/17at 21:48; Start 03/03/17 at 11:30 Isosorbide Dinitrate (Isordil) 30 mg DAILY PO ; Start 03/04/17 at 11:30 Lactulose (Lactulose Liq) 30 ml DAILY PRN PO SEVERE CONSITIPATION; Start at 07:00 Lisinopril (Prinivil) 20 mg DAILY PO Last administered on 03/04/17at 08:58; Start 03/04/17 at 09:00 Magnesium Hydroxide (Milk Of Magnesia Liq) 30 ml Q12H PRN PO Mild constipation ; Start 03/03/17 at 07:00 Methylprednisolone Sodium Succinate (SoluMEDROL INJ) 40 mg Q6HR IV PUSH Last administered on 03/04/17at 06:03; Start 03/03/17 at 12:00 Non-Formulary Medication 1 tab DAILY PO ; Start 03/04/17 at 09:00; Stop 03/04/17 at 09:00; Status DC Ondansetron HCl (Zofran Inj) 4 mg Q6H PRN IVP NAUSEA OR VOMITING; Start at 07:00 Patient Medication Teaching (Coumadin Booklet) 1 ONCE ONCE .XX Last administered on 03/03/17at 10:50; Start 03/03/17 at 07:15; Stop 03/03/17 at 07:16; Status DC Prednisone (Deltasone) 10 mg BID PO ; Start 03/03/17 at 21:00; Stop 03/03/17 at 21 :00; Status DC Senna/Docusate Sodium (Natividad-Colace) 1 tab BID PO Last administered on 03/04/17at 08:58; Start 03/03/17 at 09:00 Sennosides (Senokot) 17.2 mg Q12H PRN PO Moderate constipation; Start 03/03/17 at 07:00 Sodium Chloride (NS Flush) 2 ml BID IV FLUSH Last administered on 03/04/17at 08: 57; Start 03/03/17 at 21:00 Tramadol HCl (Ultram) 50 mg ONCE ONCE PO Last administered on 03/03/17at 06:21; Start 03/03/17 at 06:15; Stop 03/03/17 at 06:16; Status DC Warfarin Sodium (Coumadin) 3 mg DAILY@1600 PO Last administered on 03/03/17at 17: 05; Start 03/03/17 at 16:00 A/P Assessment and Plan A/P Respiratory insufficiency/failure Endstage COPD per patient continue on dual nebs at Mucinex continue on Symbicort continue on incentive spirometry we'll had antibiotics with Zithromax and Rocephin for possible pneumonia component Continue on steroids consulted hospice. Patient is a DO NOT RESUSCITATE refuses to be intubated did not tolerate BiPAP very well this morning will add xanax and morphine- will consider using BiPaP if no improvement. Congestive heart failure continue on Lasix monitor BUN/creatinine Obesity weight loss recommended Status post fall with back pain will get multiple x-rays of her thoracic and lumbar spine Hypertension continue on her home medications Coronary artery disease continue on isordil and her home medications Continue on aspirin and warfarin Hyperlipidemia patient can states she cannot take his statin Iodine allergy Discharge Planning awaiting hospice evaluation. Benjamin Cardozo MD Mar 04, 2017 09:48
[2017-03-04] MEDS: ALPRAZolam 0.5 MG TAB PO PRN (09:55)
[2017-03-04] MEDS: SODIUM CHLORIDE 0.9% FLUSH 10 ML FLUSH IV FLUSH PRN ×2 (12:14→17:44)
[2017-03-04] MEDS: ISOSORBIDE DINITRATE 10 MG TAB PO SCH (12:14)
[2017-03-04] MEDS: cefTRIAXone INJ 1,000 MG in SODIUM CHLORIDE 0.9% INJ 100 ML IV SCH (12:15)
[2017-03-04] MEDS: AZITHROMYCIN INJ 500 MG in SODIUM CHLOR 0.9% 250 ML INJ 250 ML IV SCH (12:57)
[2017-03-04] MEDS: WARFARIN SOD 3 MG TAB PO SCH (17:02)
--- NOTE | 2017-03-04 19:02 | EKG ---
Date Performed: 03/04/2017 Time Performed: 10:12:11 PTAGE: 76 years EKG: SINUS TACHYCARDIA ABNORMAL RHYTHM ECG PREVIOUS TRACING 03/03/17 @ 05.02.31 Compared to prior tracing no significant change DOCTOR: Dorcas Ledbetter Interpretating Date/Time 03/04/2017 19:00:45
[2017-03-04] MEDS ORDERED: ACETAMINOPHEN/HYDROcodone 325 MG/10 MG TAB PO ONE (22:45)
[2017-03-05] VITALS (9 sets, daily range): BP systolic 89–122; BP diastolic 52–75; PULSE 67–108; RESP 18–19; TEMP 97.9–99.2; O2SAT 91–98
[2017-03-05] MEDS: RESP: ALBUTEROL 2.5 MG/IPRATROPIUM 0.5 MG NEB (SCH) NEB ×7 (03:05→23:16)
[2017-03-05] MEDS: SODIUM CHLORIDE 0.9% FLUSH 10 ML FLUSH IV FLUSH PRN (06:14)
[2017-03-05] MEDS: methylPREDNISolone SOD SUCC 40 MG/1 ML VIAL IV PUSH SCH ×3 (06:14→22:43)
[2017-03-05] MEDS: LISINOPRIL 20 MG TAB PO SCH (09:07)
[2017-03-05] MEDS: ALPRAZolam 0.5 MG TAB PO PRN (09:07)
[2017-03-05] MEDS: guaiFENesin E.R. 600 MG TAB PO SCH ×2 (09:08→22:37)
[2017-03-05] MEDS: ISOSORBIDE DINITRATE 10 MG TAB PO SCH (09:08)
[2017-03-05] MEDS: DOCUSATE SODIUM 50 MG/SENNA 8.6 MG TAB PO SCH ×2 (09:08→22:37)
[2017-03-05] MEDS: BUDESONIDE-FORMOTEROL 160/4.5 MCG INHALER INH SCH ×2 (09:09→22:37)
[2017-03-05] MEDS: FUROSEMIDE 40 MG/4 ML VIAL IV PUSH SCH ×2 (09:09→19:14)
[2017-03-05] MEDS: SODIUM CHLORIDE 0.9% FLUSH 10 ML FLUSH IV FLUSH SCH ×2 (09:10→22:38)
--- NOTE | 2017-03-05 10:30 | HHI.PR ---
Subjective Remarks in no acute distress. but still with sob. no fever. at the bedside. d/w the RN. Objective Vitals Vital Signs Date Time Temp Pulse Resp B/P (MAP) Pulse Ox O2 Delivery O2 Flow Rate FiO2 03/05/17 08:46 91 Nasal Cannula 3.00 03/05/17 07:36 98.1 94 18 122/75 (91) 92 03/05/17 04:29 97.9 102 18 110/56 (74) 94 03/05/17 03:15 101 03/05/17 01:00 15 03/04/17 23:25 105 03/04/17 20:45 Nasal Cannula 3.00 03/04/17 20:37 98.0 78 18 116/55 (75) 94 03/04/17 20:00 103 03/04/17 16:35 115 03/04/17 16:30 108 112/64 (80) 03/04/17 16:00 98.2 103 20 99/49 (66) 94 03/04/17 12:00 111 03/04/17 12:00 97.8 105 20 126/64 (84) 95 I/O 03/04/17 03/04/17 03/04/17 03/05/17 03/05/17 03/05/17 07:00 15:00 23:00 07:00 15:00 23:00 Intake Total 200 ml 1190 ml Output Total 550 ml 600 ml 600 ml 1450 ml Balance -350 ml 590 ml -600 ml -1450 ml Intake Oral 200 ml 840 ml IV Total 350 ml Output Urine Total 550 ml 600 ml 600 ml 1450 ml Result Diagram: 03/04/17 0542 03/04/17 0542 Imaging Last Impressions Chest X-Ray 03/03/17 0459 Signed Impressions: Service Date/Time: Friday, March 03, 2017 05:10 - CONCLUSION: Large cardiac silhouette and possible retrocardiac left lung base atelectasis versus consolidation. Dave Juarez MD Thoracic Spine X-Ray 03/03/17 0000 Signed Impressions: Service Date/Time: Friday, March 03, 2017 11:29 - CONCLUSION: 1. Degenerative changes and scoliosis of the thoracic spine. 2. No acute fracture or subluxation. Andrew Aviles MD Lung Scan- Nuclear Medicine 03/03/17 0000 Signed Impressions: Service Date/Time: Friday, March 03, 2017 09:54 - CONCLUSION: Intermediate probability for pulmonary embolism. CT pulmonary angiogram would be more sensitive to rule out pulmonary emboli in this patient if clinically indicated. Andrew Aviles MD Lumbar Spine X-Ray 03/03/17 0000 Signed Impressions: Service Date/Time: Friday, March 03, 2017 11:28 - CONCLUSION: No acute compression fracture, spondylolisthesis or spondylolysis of lumbar spine. Andrew Aviles MD Objective Remarks GENERAL: anxious with sob CARDIOVASCULAR: Regular rate and regular rhythm without murmurs, gallops, or rubs. RESPIRATORY: diminished air entry bilaterally with mild wheezing. GASTROINTESTINAL: Abdomen soft, non-tender, nondistended. Normal, active bowel sounds MUSCULOSKELETAL: Extremities without clubbing, cyanosis, or edema. NEURO: Alert & Oriented x4 to person, place, time, situation. Moves all ext x4 Medications and IVs Inpatient Medications Acetaminophen (Tylenol) 650 mg Q6H PRN PO FEVER/PAIN SCALE 1 TO 2; Start at 07:00 Acetaminophen/ Hydrocodone Bitart ([place] 5-325 Mg) 1 tab Q4H PRN PO PAIN SCALE 3 TO 5; Start 03/03/17 at 07:00; Stop 03/04/17 at 09:47; Status DC Acetaminophen/ Hydrocodone Bitart ([place] 10-325 Mg) 1 tab ONCE ONCE PO Last administered on 03/05/17at 00:00; Start 03/04/17 at 22:45; Stop 03/04/17 at 22:46; Status DC Albuterol/ Ipratropium (Duoneb Neb) 1 ampule Q4HR NEB INH ; Start 03/03/17 at 12 :00; Stop 03/03/17 at 12:00; Status DC Alprazolam (Xanax) 0.5 mg Q6HR PRN PO ANXIETY Last administered on 03/05/17at 09: 07; Start 03/04/17 at 09:45 Azithromycin 500 mg/Sodium Chloride 250 ml @ 250 mls/hr Q24H IV Last administered on 03/04/17at 12:57; Start 03/03/17 at 12:00 Bisacodyl (Dulcolax Ec) 5 mg DAILY PRN PO CONSTIPATION; Start 03/03/17 at 11:15 ; Stop 03/03/17 at 11:17; Status DC Bisacodyl (Dulcolax Supp) 10 mg DAILY PRN RECTAL SEVERE CONSITIPATION; Start at 07:00 Budesonide/ Formoterol Fumarate (Symbicort 160-4.5 Mcg Inh) 2 puff Q12HR INH Last administered on 03/05/17at 09:09; Start 03/03/17 at 09:00 Ceftriaxone Sodium 1000 mg/ Sodium Chloride 100 ml @ 200 mls/hr Q24H IV Last administered on 03/04/17at 12:15; Start 03/03/17 at 12:00 Furosemide (Lasix Inj) 40 mg BID@09,18 IV PUSH Last administered on 03/05/17at 09 :09; Start 03/03/17 at 09:00 Furosemide (Lasix) 40 mg DAILY PO ; Start 03/04/17 at 09:00; Stop 03/04/17 at 09: 00; Status DC Guaifenesin (Mucinex Er) 600 mg BID PO Last administered on 03/05/17at 09:08; Start 03/03/17 at 11:30 Isosorbide Dinitrate (Isordil) 30 mg DAILY PO Last administered on 03/05/17at 09: 08; Start 03/04/17 at 11:30 Lactulose (Lactulose Liq) 30 ml DAILY PRN PO SEVERE CONSITIPATION; Start at 07:00 Lisinopril (Prinivil) 20 mg DAILY PO Last administered on 03/05/17at 09:07; Start 03/04/17 at 09:00 Magnesium Hydroxide (Milk Of Magnesia Liq) 30 ml Q12H PRN PO Mild constipation ; Start 03/03/17 at 07:00 Methylprednisolone Sodium Succinate (SoluMEDROL INJ) 40 mg Q6HR IV PUSH Last administered on 03/05/17at 06:14; Start 03/03/17 at 12:00 Morphine Sulfate (Morphine Inj) 2 mg Q4H PRN IV PUSH PAIN 3-10 Last administered on 03/04/17at 17:44; Start 03/04/17 at 09:45 Non-Formulary Medication 1 tab DAILY PO ; Start 03/04/17 at 09:00; Stop 03/04/17 at 09:00; Status DC Ondansetron HCl (Zofran Inj) 4 mg Q6H PRN IVP NAUSEA OR VOMITING; Start at 07:00 Patient Medication Teaching (Coumadin Booklet) 1 ONCE ONCE .XX Last administered on 03/03/17at 10:50; Start 03/03/17 at 07:15; Stop 03/03/17 at 07:16; Status DC Prednisone (Deltasone) 10 mg BID PO ; Start 03/03/17 at 21:00; Stop 03/03/17 at 21 :00; Status DC Senna/Docusate Sodium (Natividad-Colace) 1 tab BID PO Last administered on 03/05/17at 09:08; Start 03/03/17 at 09:00 Sennosides (Senokot) 17.2 mg Q12H PRN PO Moderate constipation; Start 03/03/17 at 07:00 Sodium Chloride (NS Flush) 2 ml BID IV FLUSH Last administered on 03/05/17at 09: 10; Start 03/03/17 at 21:00 Tramadol HCl (Ultram) 50 mg ONCE ONCE PO Last administered on 03/03/17at 06:21; Start 03/03/17 at 06:15; Stop 03/03/17 at 06:16; Status DC Warfarin Sodium (Coumadin) 3 mg DAILY@1600 PO Last administered on 03/04/17at 17: 02; Start 03/03/17 at 16:00 A/P Assessment and Plan A/P Respiratory insufficiency/failure Endstage COPD per patient continue on dual nebs at Mucinex continue on Symbicort continue on incentive spirometry we'll had antibiotics with Zithromax and Rocephin for possible pneumonia component Continue on steroids; will start to taper down the IV steroids. consulted hospice. Patient is a DO NOT RESUSCITATE refuses to be intubated did not tolerate BiPAP very well this morning anxiolytics and analgesics as needed. Congestive heart failure continue on Lasix monitor BUN/creatinine Obesity weight loss recommended Status post fall with back pain will get multiple x-rays of her thoracic and lumbar spine Hypertension continue on her home medications Coronary artery disease continue on isordil and her home medications Continue on aspirin and warfarin Hyperlipidemia patient can states she cannot take his statin Iodine allergy Discharge Planning dc home tomorrow with hospice. d/w the case management. Minouei,Mohammadreza MD Mar 05, 2017 10:30
[2017-03-05] MEDS: ACETAMINOPHEN/HYDROcodone 325 MG/10 MG TAB PO PRN ×2 (11:17→22:42)
[2017-03-05] MEDS: AZITHROMYCIN INJ 500 MG in SODIUM CHLOR 0.9% 250 ML INJ 250 ML IV SCH (12:53)
[2017-03-05 13:39] LABS: PROTHROMBIN TIME - PATIENT 10.4 SEC (9.8-11.6)
[2017-03-05] MEDS: cefTRIAXone INJ 1,000 MG in SODIUM CHLORIDE 0.9% INJ 100 ML IV SCH (15:07)
[2017-03-05] MEDS: WARFARIN SOD 3 MG TAB PO SCH (17:26)
[2017-03-05 18:25] LABS: BACTERIA, URINE OCC /hpf; BILIRUBIN, URINE NEG (NEG); BLOOD, URINE LARGE (NEG); GLUCOSE,URINE NEG (NEG); HYALINE CAST, URINE 32 /lpf (RARE); KETONE, URINE NEG (NEG); MUCUS URINE FEW /lpf (OCC); NITRITE,URINE NEG (NEG); PH, URINE 5.5 (5.0-8.5); SQUAMOUS EPITHELIAL CELL URINE 1 /hpf (0-5); URINE COLOR YELLOW (YELLW/STRAW); URINE LEUKOCYTE ESTERASE LARGE (NEG)
[2017-03-06 00:03] VITALS: PULSE 112
[2017-03-06] MEDS ORDERED: DILTIAZEM HCL 30 MG TAB PO ONE (01:00)
[2017-03-06] MEDS ORDERED: ENOXAPARIN SODIUM 100 MG/ML SYRINGE SQ SCH (01:00)
[2017-03-06] MEDS ORDERED: RESP: IPRATROPIUM 0.5 MG/2.5 ML NEB NEB PRN (01:00)
[2017-03-06] MEDS: ALPRAZolam 0.5 MG TAB PO PRN ×2 (01:05→10:08)
[2017-03-06 03:12] VITALS: BP 146/69; PULSE 72; RESP 18; TEMP 98; O2SAT 97
[2017-03-06] MEDS: RESP: IPRATROPIUM 0.5 MG/2.5 ML NEB NEB SCH ×2 (03:50→08:45)
[2017-03-06] MEDS: methylPREDNISolone SOD SUCC 40 MG/1 ML VIAL IV PUSH SCH (06:07)
[2017-03-06 07:47] LABS: INTERNATIONAL NORMALIZED RATIO 1.1 RATIO
[2017-03-06 08:00] VITALS: PULSE 101
[2017-03-06 08:37] VITALS: BP 132/69; PULSE 96; RESP 18; TEMP 98; O2SAT 93
[2017-03-06 08:45] VITALS: O2SAT 92
[2017-03-06] MEDS: DOCUSATE SODIUM 50 MG/SENNA 8.6 MG TAB PO SCH (09:01)
[2017-03-06] MEDS: BUDESONIDE-FORMOTEROL 160/4.5 MCG INHALER INH SCH (09:01)
[2017-03-06] MEDS: guaiFENesin E.R. 600 MG TAB PO SCH (09:01)
[2017-03-06] MEDS: ISOSORBIDE DINITRATE 10 MG TAB PO SCH (09:01)
[2017-03-06] MEDS: LISINOPRIL 20 MG TAB PO SCH (09:01)
[2017-03-06] MEDS: FUROSEMIDE 40 MG/4 ML VIAL IV PUSH SCH (09:02)
[2017-03-06] MEDS: SODIUM CHLORIDE 0.9% FLUSH 10 ML FLUSH IV FLUSH SCH (09:02)
[2017-03-06] MEDS: ACETAMINOPHEN/HYDROcodone 325 MG/10 MG TAB PO PRN ×2 (09:06→12:57)
--- NOTE | 2017-03-06 10:12 | HHI.PR ---
Subjective Remarks in no acute distress. but still with some sob. pain is better with pain meds. wants to go home with hospice today. family at the bedside. Objective Vitals Vital Signs Date Time Temp Pulse Resp B/P (MAP) Pulse Ox O2 Delivery O2 Flow Rate FiO2 03/06/17 08:45 92 Nasal Cannula 3.00 03/06/17 08:37 98.0 96 18 132/69 (90) 93 03/06/17 03:12 98.0 72 18 146/69 (94) 97 03/06/17 01:31 Nasal Cannula 3.00 03/06/17 00:03 112 03/05/17 23:29 98.1 108 18 114/59 (77) 95 03/05/17 20:00 103 03/05/17 19:46 91 18 106/56 (73) 96 03/05/17 19:32 96 Nasal Cannula 3.00 03/05/17 11:59 99.2 67 19 89/52 (64) 98 I/O 03/05/17 03/05/17 03/05/17 03/06/17 03/06/17 03/06/17 07:00 15:00 23:00 07:00 15:00 23:00 Intake Total 480 ml 480 ml Output Total 1450 ml 600 ml 1475 ml Balance -1450 ml -120 ml -995 ml Intake Oral 480 ml 480 ml Output Urine Total 1450 ml 600 ml 1475 ml Result Diagram: 03/04/17 0542 03/04/17 0542 Imaging Last Impressions Chest X-Ray 03/03/17 0459 Signed Impressions: Service Date/Time: Friday, March 03, 2017 05:10 - CONCLUSION: Large cardiac silhouette and possible retrocardiac left lung base atelectasis versus consolidation. Dave Juarez MD Thoracic Spine X-Ray 03/03/17 0000 Signed Impressions: Service Date/Time: Friday, March 03, 2017 11:29 - CONCLUSION: 1. Degenerative changes and scoliosis of the thoracic spine. 2. No acute fracture or subluxation. Andrew Aviles MD Lung Scan- Nuclear Medicine 03/03/17 0000 Signed Impressions: Service Date/Time: Friday, March 03, 2017 09:54 - CONCLUSION: Intermediate probability for pulmonary embolism. CT pulmonary angiogram would be more sensitive to rule out pulmonary emboli in this patient if clinically indicated. Andrew Aviles MD Lumbar Spine X-Ray 03/03/17 0000 Signed Impressions: Service Date/Time: Friday, March 03, 2017 11:28 - CONCLUSION: No acute compression fracture, spondylolisthesis or spondylolysis of lumbar spine. Andrew Aviles MD Objective Remarks GENERAL: anxious with sob CARDIOVASCULAR: Regular rate and regular rhythm without murmurs, gallops, or rubs. RESPIRATORY: diminished air entry bilaterally with mild wheezing. GASTROINTESTINAL: Abdomen soft, non-tender, nondistended. Normal, active bowel sounds MUSCULOSKELETAL: Extremities without clubbing, cyanosis, or edema. NEURO: Alert & Oriented x4 to person, place, time, situation. Moves all ext x4 Medications and IVs Inpatient Medications Acetaminophen (Tylenol) 650 mg Q6H PRN PO FEVER/PAIN SCALE 1 TO 2; Start at 07:00 Acetaminophen/ Hydrocodone Bitart ([place] 5-325 Mg) 1 tab Q4H PRN PO PAIN SCALE 3 TO 5; Start 03/03/17 at 07:00; Stop 03/04/17 at 09:47; Status DC Acetaminophen/ Hydrocodone Bitart ([place] 10-325 Mg) 1 tab Q6H PRN PO PAIN 3-10 Last administered on 03/06/17at 09:06; Start 03/05/17 at 10:30 Albuterol/ Ipratropium (Duoneb Neb) 1 ampule Q4HR NEB INH ; Start 03/03/17 at 12 :00; Stop 03/03/17 at 12:00; Status DC Alprazolam (Xanax) 0.5 mg Q6HR PRN PO ANXIETY Last administered on 03/06/17at 10 :08; Start 03/04/17 at 09:45 Azithromycin 500 mg/Sodium Chloride 250 ml @ 250 mls/hr Q24H IV Last administered on 03/05/17at 12:53; Start 03/03/17 at 12:00 Bisacodyl (Dulcolax Ec) 5 mg DAILY PRN PO CONSTIPATION; Start 03/03/17 at 11:15 ; Stop 03/03/17 at 11:17; Status DC Bisacodyl (Dulcolax Supp) 10 mg DAILY PRN RECTAL SEVERE CONSITIPATION; Start at 07:00 Budesonide/ Formoterol Fumarate (Symbicort 160-4.5 Mcg Inh) 2 puff Q12HR INH Last administered on 03/06/17at 09:01; Start 03/03/17 at 09:00 Ceftriaxone Sodium 1000 mg/ Sodium Chloride 100 ml @ 200 mls/hr Q24H IV Last administered on 03/05/17at 15:07; Start 03/03/17 at 12:00 Diltiazem HCl (Cardizem) 30 mg ONCE ONCE PO Last administered on 03/06/17at 01: 05; Start 03/06/17 at 01:00; Stop 03/06/17 at 01:01; Status DC Enoxaparin Sodium (Lovenox Inj) 90 mg Q12H SQ Last administered on 03/06/17at 01 :05; Start 03/06/17 at 01:00 Furosemide (Lasix Inj) 40 mg BID@,18 IV PUSH Last administered on 03/06/17at 09:02; Start 03/03/17 at 09:00 Furosemide (Lasix) 40 mg DAILY PO ; Start 03/04/17 at 09:00; Stop 03/04/17 at 09: 00; Status DC Guaifenesin (Mucinex Er) 600 mg BID PO Last administered on 03/06/17at 09:01; Start 03/03/17 at 11:30 Ipratropium [place] (Atrovent Neb) 0.5 mg Q2HR NEB PRN NEB wheezing; Start 12/12 at 01:00 Isosorbide Dinitrate (Isordil) 30 mg DAILY PO Last administered on 03/06/17at 09 :01; Start 03/04/17 at 11:30 Lactulose (Lactulose Liq) 30 ml DAILY PRN PO SEVERE CONSITIPATION; Start at 07:00 Lisinopril (Prinivil) 20 mg DAILY PO Last administered on 03/06/17at 09:01; Start 03/04/17 at 09:00 Magnesium Hydroxide (Milk Of Magnesia Liq) 30 ml Q12H PRN PO Mild constipation ; Start 03/03/17 at 07:00 Methylprednisolone Sodium Succinate (SoluMEDROL INJ) 40 mg Q8HR IV PUSH Last administered on 03/06/17at 06:07; Start 03/05/17 at 14:00 Morphine Sulfate (Morphine Inj) 2 mg Q4H PRN IV PUSH PAIN 3-10 Last administered on 03/04/17at 17:44; Start 03/04/17 at 09:45; Stop 03/05/17 at 10:28; Status DC Non-Formulary Medication 1 tab DAILY PO ; Start 03/04/17 at 09:00; Stop 03/04/17 at 09:00; Status DC Ondansetron HCl (Zofran Inj) 4 mg Q6H PRN IVP NAUSEA OR VOMITING; Start at 07:00 Patient Medication Teaching (Coumadin Booklet) 1 ONCE ONCE .XX Last administered on 03/03/17at 10:50; Start 03/03/17 at 07:15; Stop 03/03/17 at 07:16; Status DC Prednisone (Deltasone) 10 mg BID PO ; Start 03/03/17 at 21:00; Stop 03/03/17 at 21 :00; Status DC Senna/Docusate Sodium (Natividad-Colace) 1 tab BID PO Last administered on at 09:01; Start 03/03/17 at 09:00 Sennosides (Senokot) 17.2 mg Q12H PRN PO Moderate constipation; Start 03/03/17 at 07:00 Sodium Chloride (NS Flush) 2 ml BID IV FLUSH Last administered on 03/06/17at 09: 02; Start 03/03/17 at 21:00 Tramadol HCl (Ultram) 50 mg ONCE ONCE PO Last administered on 03/03/17at 06:21; Start 03/03/17 at 06:15; Stop 03/03/17 at 06:16; Status DC Warfarin Sodium (Coumadin) 3 mg DAILY@1600 PO Last administered on 03/05/17at 17: 26; Start 03/03/17 at 16:00 A/P Assessment and Plan A/P Respiratory insufficiency/failure Endstage COPD per patient continue on dual nebs at Mucinex continue on Symbicort continue on incentive spirometry we'll had antibiotics with Zithromax and Rocephin for possible pneumonia component Continue on steroids; will start to taper down the IV steroids. consulted hospice. Patient is a DO NOT RESUSCITATE refuses to be intubated did not tolerate BiPAP very well this morning anxiolytics and analgesics as needed. Congestive heart failure continue on Lasix monitor BUN/creatinine Obesity weight loss recommended Status post fall with back pain will get multiple x-rays of her thoracic and lumbar spine Hypertension continue on her home medications Coronary artery disease continue on isordil and her home medications Continue on aspirin and warfarin Hyperlipidemia patient can states she cannot take his statin Iodine allergy Discharge Planning dc home with hospice when arrangements made. d/w the patient and the family at the bedside . Benjamin Cardozo MD Mar 06, 2017 10:12
[2017-03-06] MEDS ORDERED: AZIT500T2 PO (10:13)
[2017-03-06] MEDS ORDERED: guaiFENesin ER PO (10:13)
[2017-03-06] MEDS ORDERED: CEFU1TAB18 PO (10:13)
[2017-03-06] MEDS ORDERED: Budeson-Formot 160-4.5 Mcg Inh INH (10:13)
[2017-03-06] MEDS ORDERED: PRED20 PO (10:13)
--- NOTE | 2017-03-06 10:14 | HHI.DCPOC ---
Discharge Care Plan Diagnosis: (1) Pneumonia (2) COPD exacerbation Goals to Promote Your Health * To prevent worsening of your condition and complications * To maintain your health at the optimal level Directions to Meet Your Goals Take your medications as prescribed Follow your dietary instruction Follow activity as directed Keep your appointments as scheduled Take your immunizations and boosters as scheduled If your symptoms worsen call your PCP, if no PCP go to Urgent Care Center or Emergency Room Smoking is Dangerous to Your Health. Avoid second hand smoke Call the 24-hour hour crisis hotline for domestic abuse at Carolina Collier PA-C Mar 06, 2017 10:14
--- NOTE | 2017-03-06 10:14 | HHI.DS ---
Discharge Summary Admission Date Mar 03, 2017 at 11:19 Discharge Date: Mar 06, 2017 Admitting Diagnosis dyspnea; exac copd, h/o chf (1) COPD exacerbation ICD Code: J44.1 - Chronic obstructive pulmonary disease with (acute) exacerbation Procedures none Brief History - From Admission Patient is a 76-year-old female, Who is visiting us from [place], who presented to the emergency department by EMS for complaint of sudden worsening shortness of breath. Patient has a history of severe COPD and congestive heart failure and end-stage COPD. Patient is on chronic supplemental oxygen at home ON 3 L by nasal cannula continuously. Patient states since yesterday she has had progressively worsening shortness of breath. Patient states yesterday while trying to move her oxygen Tank she felt pain in her mid back and is concerned she sustained injury or fracture. Patient denies any fall, patient states that she is in the process of signing paperwork to place herself in hospice for end-stage COPD and CHF and possible renal issues. Patient is not on dialysis. Patient states she has chronic lower extremity edema. Patient denies any report of fever or chills that does not report any chest pain at this time was transported here by EMS noted to have oxygen saturation of only 88 % on oxygen. And then had been on 15 L nonrebreather mask had refused CPAP en route to the hospital and was given nebulized treatments prior to coming to the hospital Patient HAS made herself a complete DO NOT RESUSCITATE does not wish to be intubated or placed on any machines. Wants everything done except for that but no CPR or machines or aggressive treatment but still wants to be treated We'll ask hospice to see her here since she was contemplating hospice up in [place] We'll get x-rays of her back also CBC/BMP: 03/04/17 0542 03/04/17 0542 Significant Findings Laboratory Tests Test 03/03/17 12:30 03/04/17 05:42 03/05/17 06:30 03/05/17 13:03 Red Blood Count 3.87 MIL/MM3 (4.00-5.30) Hemoglobin 11.4 GM/DL (11.6-15.3) Hematocrit 33.9 % (35.0-46.0) Neutrophils (%) (Auto) 91.0 % (16.0-70.0) Lymphocytes (%) (Auto) 7.4 % (9.0-44.0) Lymphocytes # (Auto) 0.6 TH/MM3 (1.0-4.8) Basophilic Stippling MOD (NORMAL) Creatinine 1.01 MG/DL (0.50-1.00) Random Glucose 161 MG/DL (74-106) Albumin 3.1 GM/DL (3.4-5.0) Sodium Level 134 MEQ/L (136-145) Chloride Level 93 MEQ/L (98-107) Carbon Dioxide Level 33.5 MEQ/L (21.0-32.0) Estimat Glomerular Filtration Rate 53 ML/MIN (>89) Test 03/05/17 17:30 03/06/17 07:18 Urine Turbidity HAZY (CLEAR) Urine Protein 30 mg/dL (NEG-TRACE) Urine Occult Blood LARGE (NEG) Urine Leukocyte Esterase LARGE (NEG) Urine RBC 65 /hpf (0-3) Urine WBC 15 /hpf (0-5) Urine Bacteria OCC /hpf (NONE) Urine Mucus FEW /lpf (OCC) Imaging Last Impressions Chest X-Ray 03/03/17 0459 Signed Impressions: Service Date/Time: Friday, March 03, 2017 05:10 - CONCLUSION: Large cardiac silhouette and possible retrocardiac left lung base atelectasis versus consolidation. Dave Juarez MD Thoracic Spine X-Ray 03/03/17 0000 Signed Impressions: Service Date/Time: Friday, March 03, 2017 11:29 - CONCLUSION: 1. Degenerative changes and scoliosis of the thoracic spine. 2. No acute fracture or subluxation. Andrew Aviles MD Lung Scan- Nuclear Medicine 03/03/17 0000 Signed Impressions: Service Date/Time: Friday, March 03, 2017 09:54 - CONCLUSION: Intermediate probability for pulmonary embolism. CT pulmonary angiogram would be more sensitive to rule out pulmonary emboli in this patient if clinically indicated. Andrew Aviles MD Lumbar Spine X-Ray 03/03/17 0000 Signed Impressions: Service Date/Time: Friday, March 03, 2017 11:28 - CONCLUSION: No acute compression fracture, spondylolisthesis or spondylolysis of lumbar spine. Andrew Aviles MD PE at Discharge GENERAL: anxious with sob CARDIOVASCULAR: Regular rate and regular rhythm without murmurs, gallops, or rubs. RESPIRATORY: diminished air entry bilaterally with mild wheezing. GASTROINTESTINAL: Abdomen soft, non-tender, nondistended. Normal, active bowel sounds MUSCULOSKELETAL: Extremities without clubbing, cyanosis, or edema. NEURO: Alert & Oriented x4 to person, place, time, situation. Moves all ext x4 Hospital Course patient was admitted with COPD exacerbation. she was started on IV steroids, antibiotics and neb treatment. hospice was consulted. she's going home with hospice. Pt Condition on Discharge: Fair Discharge Disposition: Hospice/ Home Discharge Time: <= 30 minutes Discharge Instructions DIET: Follow Instructions for: Heart Healthy Diet Activities you can perform: Regular-No Restrictions Benjamin Cardozo MD Mar 06, 2017 10:14
[2017-03-06] MEDS: cefTRIAXone INJ 1,000 MG in SODIUM CHLORIDE 0.9% INJ 100 ML IV SCH (11:19)
[2017-03-06] MEDS: AZITHROMYCIN INJ 500 MG in SODIUM CHLOR 0.9% 250 ML INJ 250 ML IV SCH (11:19)
[2017-03-06 12:43] VITALS: BP 102/62; PULSE 97; RESP 18; TEMP 98.4; O2SAT 96
== END 2017-03-06 13:18 | disposition hospice, home (50) | DRG 190 ==
LOC: NEPC 04:51 → NEDA 06:51 → NEPHCDU 09:15 → OBSVTOIN 11:19
PROVIDERS: ADMIT Internal Medicine; ATTEND Internal Medicine
DX: J44.1 Chronic obstructive pulmonary disease with (acute) exacerbation (principal); J18.9 Pneumonia, unspecified organism; J96.90 Respiratory failure, unspecified, unspecified whether with hypoxia or hypercapnia; I13.2 Hypertensive heart and chronic kidney disease with heart failure and with stage 5 chronic kidney disease, or end stage renal disease; Z99.81 Dependence on supplemental oxygen; I50.9 Heart failure, unspecified; Z68.41 Body mass index [BMI] 40.0-44.9, adult; G89.29 Other chronic pain; M54.5 Low back pain; Z66 Do not resuscitate; E78.5 Hyperlipidemia, unspecified; I25.10 Atherosclerotic heart disease of native coronary artery without angina pectoris; E66.9 Obesity, unspecified; I89.0 Lymphedema, not elsewhere classified; J44.0 Chronic obstructive pulmonary disease with (acute) lower respiratory infection; N18.9 Chronic kidney disease, unspecified; Z91.81 History of falling; Z91.041 Radiographic dye allergy status; Z86.718 Personal history of other venous thrombosis and embolism; Z79.01 Long term (current) use of anticoagulants; Z72.0 Tobacco use
CPT/HCPCS: 36600; 51702; 71045; 72072; 72110; 78582; 80053; 81001; 82550; 82552; 82805; 83036; 83605; 83735; 83880; 84100; 84439; 84443; 84484; 85025; 85379; 85610; 85730; 87040; 87086; 93005; 94150; 94640; 94664; 96374; A9540; A9567; J0456; J0696; J1650; J1940; J2270; J2920; J7050; J7644